=== PATIENT | male | born 1970 | race Caucasian/White ===

== ENCOUNTER 2017-07-11 10:31 | Emergency (ER) | payer SELFPAY ==
[~2017-07-11] VITALS: Ht 175.3 cm; Wt 77.0 kg
[2017-07-11] MEDS ORDERED: TETANUS, DIPHTHERIA, PERTUSSIS VAC/PF 0.5ML (>7YR OLD) IM ONE (12:45)
[2017-07-11] MEDS ORDERED: LIDOCAINE HCL 1% 20ML VIAL (Pyxis) INJ INFIL ONE (12:45)
[2017-07-11] MEDS ORDERED: BACITRACIN ZINC OINT UDPKT TOP ONE (12:45)
[2017-07-11] MEDS ORDERED: HYDROCODONE/ACETAMINOPHEN 5/325MG TABLET PO ONE (13:00)
[2017-07-11] MEDS ORDERED: LIDOCAINE HCL 1% 10 MG/ML 10ML VIAL IJ NR (13:17)
[2017-07-11 14:27] VITALS: BP 121/78
== END 2017-07-11 14:30 | disposition home or self-care (01) ==
LOC: ER 11:23
DX: S61.211A Laceration without foreign body of left index finger without damage to nail, initial encounter (principal); W26.0XXA Contact with knife, initial encounter; Y93.89 Activity, other specified; Y92.69 Other specified industrial and construction area as the place of occurrence of the external cause; Y99.8 Other external cause status
CPT/HCPCS: 12002; 73130; 90471; 90715; 99284; A4217; J3490; Z7610